=== PATIENT | male | born 1985 | race Two or more races ===

== ENCOUNTER 2018-06-22 12:40 | Emergency (ER) | payer SELFPAY ==
[~2018-06-22] VITALS: Ht 190.5 cm; Wt 95.3 kg
[2018-06-22 13:59] VITALS: BP 123/57
== END 2018-06-22 14:19 | disposition home or self-care (01) ==
LOC: ER 12:45
DX: S70.362A Insect bite (nonvenomous), left thigh, initial encounter (principal); S30.860A Insect bite (nonvenomous) of lower back and pelvis, initial encounter; F17.210 Nicotine dependence, cigarettes, uncomplicated; W57.XXXA Bitten or stung by nonvenomous insect and other nonvenomous arthropods, initial encounter; Y93.89 Activity, other specified; Y99.8 Other external cause status; Y92.89 Other specified places as the place of occurrence of the external cause